=== PATIENT | male | born 1945 | race Caucasian/White ===

== ENCOUNTER 2019-03-22 14:51 | Emergency (ER) | payer MEDICAID, MEDICARE, OTHER ==
[~2019-03-22] VITALS: Ht 165.1 cm; Wt 63.5 kg
[~2019-03-22 14:51] MED LIST: ATOR10TA PO; CARB-94 PO; CLON0.1T PO; DIVA-78 PO; GABA-532 PO; GLIP10TA21 PO; LOSA50TA39 PO; METF-440 PO; METO25TA6 PO; MIRT15TA7 PO; TAMS0.4C34 PO; TEMA15CA PO; TRIH2TAB3 PO
[2019-03-22 14:53] VITALS: BP 136/79
--- NOTE | 2019-03-22 15:24 | NUR ---
Medically Cleared/MSE for Booking To [employer] custody escorted by Officer Chema
== END 2019-03-22 15:26 ==
LOC: ER 14:58
DX: Z02.89 Encounter for other administrative examinations (principal); F03.90 Unspecified dementia, unspecified severity, without behavioral disturbance, psychotic disturbance, mood disturbance, and anxiety; F20.9 Schizophrenia, unspecified; E11.9 Type 2 diabetes mellitus without complications; Z79.899 Other long term (current) drug therapy; Z79.84 Long term (current) use of oral hypoglycemic drugs

== ENCOUNTER 2023-08-18 12:36 | Emergency (ER) | payer MEDICARE, MEDICAID ==
[~2023-08-18] VITALS: Ht 157.5 cm; Wt 63.5 kg
[~2023-08-18 12:36] MED LIST changes: +MIRT-90 PO; -MIRT15TA7 PO
[2023-08-18 12:42] VITALS: BP 114/72; TEMP 98.7; O2SAT 100
[2023-08-18] MEDS ORDERED: SULF1TAB48 PO (12:51)
== END 2023-08-18 13:30 ==
LOC: ER 12:36
DX: A49.02 Methicillin resistant Staphylococcus aureus infection, unspecified site (principal); L73.9 Follicular disorder, unspecified; E11.9 Type 2 diabetes mellitus without complications; Z79.899 Other long term (current) drug therapy
CPT/HCPCS: 82962-TC

== ENCOUNTER 2023-09-30 11:44 | Inpatient (IN) | payer MEDICARE, OTHER ==
[~2023-09-30] VITALS: Ht 165.1 cm; Wt 57.6 kg
[~2023-09-30 11:44] MED LIST changes: +SULF1TAB48 PO
[2023-09-30] MEDS: IV NS 0.9% 1,000 ML BAG IV ONE (11:50)
[2023-09-30 11:59] LABS: BASOPHILS % (AUTO) 0.3 % (0.0-2.0); EOSINOPHILS % (AUTO) 0.1 % (0.0-6.0); HEMATOCRIT 39 % (39-51); HEMOGLOBIN 13.2 g/dL (13.5-17.5); LYMPHOCYTES # (AUTO) 0.6 K/uL (0.8-4.8); LYMPHOCYTES % (AUTO) 13.9 % (20.0-44.0); MEAN CORPUSCULAR HEMOGLOBIN 30 PG (26.0-33.0); MEAN CORPUSCULAR HGB CONC 34 g/dl (31.0-36.0); MEAN CORPUSCULAR VOLUME 89 fL (80-96); MONOCYTES # (AUTO) 0.5 K/uL (0.1-1.30); MONOCYTES % (AUTO) 12.1 % (2.0-12.0); NEUTROPHILS # (AUTO) 3.3 K/uL (1.8-8.9); NEUTROPHILS % (AUTO) 73.6 % (43.0-81.0); PLATELET COUNT (AUTO) 154 K/uL (150-450); RED BLOOD CELL COUNT(AUTO) 4.43 MIL/uL (4.5-6.0); RED CELL DISTRIBUTION WIDTH 14.4 % (11.5-15.0); WHITE BLOOD COUNT (AUTO) 4.5 K/uL (4.3-11.0)
[2023-09-30 12:05] LABS: CALCIUM, SERUM 9.5 mg/dL (8.5-10.1); CARBON DIOXIDE 26 mmol/L (21-32); CHLORIDE 97 mmol/L (98-107); CREATININE 1.3 mg/dL (0.6-1.3); GLUCOSE 136 mg/dL (74-106); POTASSIUM 4.2 mmol/L (3.5-5.1); SODIUM SERUM 130 mmol/L (136-145); UREA NITROGEN, BLOOD 19 mg/dL (7-18)
[2023-09-30 12:11] LABS: ALANINE AMINOTRANSFERASE 10 U/L (12-78); ALBUMIN 3.8 g/dL (3.4-5.0); ALKALINE PHOSPHATASE 79 U/L (46-116); ASPARTATE AMINOTRANSFERASE 19 U/L (15-37); BILIRUBIN,DIRECT 0.3 mg/dL (0.0-0.2); TOTAL PROTEIN, SERUM 8.4 g/dL (6.4-8.2)
[2023-09-30 12:17] LABS: INR 1.01 (0.91-1.10); PARTIAL THROMBOPLASTIN TIME 28.2 SEC (24.3-34.3); PROTHROMBIN TIME 10.4 SECS (9.2-11.1)
[2023-09-30] MEDS ORDERED: CLIN75SO TP (12:50)
[2023-09-30] MEDS ORDERED: MEMA10TA56 PO (12:50)
[2023-09-30] MEDS ORDERED: DONE10TA44 PO (12:50)
[2023-09-30] MEDS ORDERED: CLOB15CR5 TP (12:50)
[2023-09-30] MEDS ORDERED: ESCI5TAB PO (12:50)
[2023-09-30] MEDS ORDERED: GLUC1KIT2 IM (12:50)
[2023-09-30] MEDS ORDERED: CARB1TAB21 PO (12:50)
[2023-09-30] MEDS ORDERED: BUSP5TAB3 PO (12:50)
[2023-09-30] MEDS ORDERED: ZOLPIDEM TARTRATE 5 MG TABLET PO PRN (13:30)
[2023-09-30] MEDS ORDERED: MAG HYDROX/AL HYDROX/SIMETH 30 ML UDC PO PRN (13:30)
[2023-09-30] MEDS ORDERED: ONDANSETRON HCL/PF 4 MG/2 ML VIAL IVP PRN (13:30)
[2023-09-30] MEDS ORDERED: HYDROCODONE/APAP 5/325MG TABLET PO PRN (13:30)
[2023-09-30] MEDS ORDERED: Z GUARD REMEDY 4 OZ OINT TP PRN (13:30)
[2023-09-30] MEDS ORDERED: DEXTROSE 50%-WATER 50 ML DISP.SYRIN IV PRN (14:00)
[2023-09-30] MEDS: PANTOPRAZOLE 40 MG TABLET.DR PO SCH (14:05)
[2023-09-30] MEDS: IV 1/2NS 1000 ML 1,000 ML IV PRN (15:11)
[2023-09-30] MEDS: BLOOD SUGAR DIAGNOSTIC 1 EACH STRIP IN SCH (17:10)
[2023-09-30] MEDS: INSULIN REGULAR, HUMAN 100 UNIT/ML 3 ML VIAL SQ PRN (17:11)
[2023-09-30] MEDS: ACETAMINOPHEN 325 MG TABLET PO PRN (17:59)
[2023-09-30 20:49] VITALS: BP 110/75; TEMP 98.8; O2SAT 96
[2023-10-01 02:29] LABS: APPEARANCE,URINE CLEAR (CLEAR); BILIRUBIN,URINE NEGATIVE (NEGATIVE); BLOOD, URINE TRACE-INTA Ery/uL (NEGATIVE); COLOR,URINE YELLOW (YELLOW); KETONES,URINE NEGATIVE (NEGATIVE); LEUKOCYTE ESTERASE ,URINE 3+ (NEGATIVE); NITRITE, URINE POSITIVE (NEGATIVE); PROTEIN,URINE NEGATIVE (NEGATIVE); UGLUCOSE NEGATIVE (NEGATIVE); UROBILINOGEN,URINE 0.2 EU/dL (0.2)
[2023-10-01 02:30] LABS: ADD URINE CULTURE YES; BACTERIA,URINE Moderate /HPF (None Seen); SQUAMOUS EPITHELIAL CELL,UR Rare /HPF (None Seen)
[2023-10-01 07:22] LABS: BASOPHILS % (AUTO) 0.2 % (0.0-2.0); EOSINOPHILS % (AUTO) 0.2 % (0.0-6.0); HEMATOCRIT 34 % (39-51); HEMOGLOBIN 11.8 g/dL (13.5-17.5); LYMPHOCYTES # (AUTO) 1.4 K/uL (0.8-4.8); MEAN CORPUSCULAR HEMOGLOBIN 31 PG (26.0-33.0); MEAN CORPUSCULAR HGB CONC 35 g/dl (31.0-36.0); MEAN CORPUSCULAR VOLUME 88 fL (80-96); MONOCYTES # (AUTO) 0.7 K/uL (0.1-1.30); MONOCYTES % (AUTO) 15.6 % (2.0-12.0); NEUTROPHILS # (AUTO) 2.3 K/uL (1.8-8.9); PLATELET COUNT (AUTO) 166 K/uL (150-450); RED BLOOD CELL COUNT(AUTO) 3.85 MIL/uL (4.5-6.0); RED CELL DISTRIBUTION WIDTH 14.3 % (11.5-15.0); WHITE BLOOD COUNT (AUTO) 4.4 K/uL (4.3-11.0)
[2023-10-01 07:30] VITALS: BP 112/62; TEMP 97.4; O2SAT 97
[2023-10-01 07:44] VITALS: O2SAT 97
[2023-10-01 07:53] LABS: CALCIUM, SERUM 8.1 mg/dL (8.5-10.1); CARBON DIOXIDE 23 mmol/L (21-32); CHLORIDE 101 mmol/L (98-107); CREATININE 0.7 mg/dL (0.6-1.3); GLUCOSE 89 mg/dL (74-106); MAGNESIUM 1.7 mg/dL (1.8-2.4); PHOSPHORUS 2.7 mg/dL (2.5-4.9); POTASSIUM 3.8 mmol/L (3.5-5.1); SODIUM SERUM 136 mmol/L (136-145); UREA NITROGEN, BLOOD 14 mg/dL (7-18)
[2023-10-01] MEDS ORDERED: GLUCAGON XX SCH (08:30)
[2023-10-01 08:39] LABS: CHOLESTEROL 73 mg/dL (<200); HDL CHOLESTEROL 34 mg/dL (40-60); LDL 34 mg/dL (0-99); TRIGLYCERIDES 59 mg/dL (30-150)
[2023-10-01] MEDS: CEFTRIAXONE 1 G in IV D5W 50 ML IV SCH (09:23)
[2023-10-01] MEDS: MEMANTINE HCL 5 MG TABLET PO SCH (09:30)
[2023-10-01] MEDS: TAMSULOSIN 0.4 MG CAP.SR.24H PO SCH (09:31)
[2023-10-01] MEDS: busPIRone 5 MG TABLET PO SCH (09:32)
[2023-10-01] MEDS: ESCITALOPRAM OXALATE (10 MG) 10 MG TABLET PO SCH (09:32)
[2023-10-01] MEDS: GABAPENTIN 100 MG CAPSULE PO SCH (09:32)
[2023-10-01] MEDS: CARBIDOPA/LEVODOPA 25/100 MG 1 UDTAB PO SCH (09:34)
[2023-10-01 09:50] LABS: BAND % (MANUAL) 1 % (0.0-5.0); NEUTROPHILS % (MANUAL) 42 (42-76)
[2023-10-01 09:51] LABS: LYMPHOCYTES % (MANUAL) 40 % (16-48); MONOCYTES % (MANUAL) 15 % (0-11.0); MYELOCYTES % 1 % (0-0)
[2023-10-01 09:52] LABS: EOSINOPHILS % (MANUAL) 1 % (0-4); PLATELET ESTIMATE ADEQUATE
[2023-10-01] MEDS: MAGNESIUM OXIDE 400 MG TABLET PO ONE (10:51)
[2023-10-01] MEDS: CLOBETASOL 0.05% CREAM 15 GM TUBE TP SCH (13:46)
[2023-10-01 16:00] VITALS: BP 101/65; TEMP 97.5; O2SAT 98
[2023-10-01 20:00] VITALS: BP 99/67; TEMP 97.9; O2SAT 100
[2023-10-01 20:50] VITALS: BP 99/67; TEMP 97.9; O2SAT 100
[2023-10-01] MEDS: DONEPEZIL 5 MG TABLET PO SCH (21:31)
[2023-10-01] MEDS: ATORVASTATIN 10 MG TABLET PO SCH (21:31)
[2023-10-02 07:10] LABS: CALCIUM, SERUM 8.3 mg/dL (8.5-10.1); CARBON DIOXIDE 24 mmol/L (21-32); CHLORIDE 99 mmol/L (98-107); CREATININE 0.7 mg/dL (0.6-1.3); GLUCOSE 85 mg/dL (74-106); MAGNESIUM 1.9 mg/dL (1.8-2.4); PHOSPHORUS 2.5 mg/dL (2.5-4.9); POTASSIUM 3.5 mmol/L (3.5-5.1); SODIUM SERUM 131 mmol/L (136-145); UREA NITROGEN, BLOOD 8 mg/dL (7-18)
[2023-10-02 07:30] VITALS: BP 116/62; TEMP 98.4; O2SAT 95
[2023-10-02 07:35] VITALS: BP 115/64; TEMP 98.8; O2SAT 96
[2023-10-02 08:00] VITALS: O2SAT 95
[2023-10-02 08:38] LABS: URIC ACID 3.8 mg/dL (2.6-7.2)
[2023-10-02 15:52] VITALS: BP 99/58; TEMP 98.2; O2SAT 93
[2023-10-02] MEDS: IV NS 0.9% 1,000 ML IV PRN (15:52)
[2023-10-02] MEDS: MAGNESIUM HYDROXIDE 30 ML UDC PO PRN (16:51)
[2023-10-03 08:00] VITALS: BP 127/66; TEMP 98.4; O2SAT 96
== END 2023-10-03 13:15 | DRG 640 ==
LOC: ER 11:50 → MED 12:58
PROVIDERS: ADMIT Nurse Practitioner Acute Care; ATTEND Nurse Practitioner Acute Care
DX: E87.1 Hypo-osmolality and hyponatremia (principal); G93.41 Metabolic encephalopathy; N39.0 Urinary tract infection, site not specified; E11.9 Type 2 diabetes mellitus without complications; G30.9 Alzheimer's disease, unspecified; F02.80 Dementia in other diseases classified elsewhere, unspecified severity, without behavioral disturbance, psychotic disturbance, mood disturbance, and anxiety; I25.10 Atherosclerotic heart disease of native coronary artery without angina pectoris; F20.9 Schizophrenia, unspecified; N40.0 Benign prostatic hyperplasia without lower urinary tract symptoms; F29 Unspecified psychosis not due to a substance or known physiological condition; Z79.84 Long term (current) use of oral hypoglycemic drugs; Z79.899 Other long term (current) drug therapy; E78.5 Hyperlipidemia, unspecified; I10 Essential (primary) hypertension; B96.89 Other specified bacterial agents as the cause of diseases classified elsewhere; R53.1 Weakness; Z82.49 Family history of ischemic heart disease and other diseases of the circulatory system; Z83.3 Family history of diabetes mellitus
CPT/HCPCS: 36415; 70450-TC; 71045-TC; 80048-TC; 80061-TC; 80076-TC; 81001; 82962-TC; 83605-TC; 83735-TC; 83935-TC; 84100-TC; 84443-TC; 84484-TC; 84550-TC; 85025-TC; 85730-TC; 87040-TC; 87081-TC; 87086-TC; 94762-TC; 94799-TC; 97110-TC; 97116-TC; 97530-TC; A4223; G0378; J0696; J1815; J3490; J7030; J7060

== ENCOUNTER 2023-12-25 13:12 | Inpatient (IN) | payer MEDICARE, OTHER ==
[~2023-12-25] VITALS: Ht 154.9 cm; Wt 49.9 kg
[~2023-12-25 13:12] MED LIST changes: +BUSP5TAB3 PO; -CARB-94 PO; +CARB1TAB21 PO; +CLIN75SO TP; +CLOB15CR5 TP; -CLON0.1T PO; -DIVA-78 PO; +DONE10TA44 PO; +ESCI5TAB PO; -GLIP10TA21 PO; +GLUC1KIT2 IM; -LOSA50TA39 PO; +MEMA10TA56 PO; -METO25TA6 PO; -MIRT-90 PO; -SULF1TAB48 PO; -TEMA15CA PO; -TRIH2TAB3 PO
[2023-12-25] MEDS ORDERED: DOCU100C36 PO (13:47)
[2023-12-25] MEDS ORDERED: PANT40TA49 PO (13:47)
[2023-12-25] MEDS ORDERED: ACET325T53 PO (13:47)
[2023-12-25] MEDS ORDERED: ONDANSETRON HCL/PF 4 MG/2 ML VIAL ONE (13:51)
[2023-12-25] MEDS: ONDANSETRON HCL/PF 4 MG/2 ML VIAL IVP ONE (13:56)
[2023-12-25 14:01] LABS: BASOPHILS % (AUTO) 0.2 % (0.0-2.0); EOSINOPHILS % (AUTO) 0.1 % (0.0-6.0); HEMATOCRIT 41 % (39-51); HEMOGLOBIN 13.6 g/dL (13.5-17.5); LYMPHOCYTES # (AUTO) 1.1 K/uL (0.8-4.8); MEAN CORPUSCULAR HEMOGLOBIN 30 PG (26.0-33.0); MEAN CORPUSCULAR HGB CONC 34 g/dl (31.0-36.0); MEAN CORPUSCULAR VOLUME 89 fL (80-96); MONOCYTES # (AUTO) 0.4 K/uL (0.1-1.30); MONOCYTES % (AUTO) 9.1 % (2.0-12.0); NEUTROPHILS % (AUTO) 65.6 % (43.0-81.0); PLATELET COUNT (AUTO) 146 K/uL (150-450); RED BLOOD CELL COUNT(AUTO) 4.57 MIL/uL (4.5-6.0); RED CELL DISTRIBUTION WIDTH 14.9 % (11.5-15.0); WHITE BLOOD COUNT (AUTO) 4.5 K/uL (4.3-11.0)
[2023-12-25 14:19] LABS: ALANINE AMINOTRANSFERASE 20 U/L (12-78); ALBUMIN 4.2 g/dL (3.4-5.0); ALKALINE PHOSPHATASE 82 U/L (46-116); ASPARTATE AMINOTRANSFERASE 17 U/L (15-37); BILIRUBIN,DIRECT 0.2 mg/dL (0.0-0.2); CALCIUM, SERUM 9.2 mg/dL (8.5-10.1); CARBON DIOXIDE 29 mmol/L (21-32); CHLORIDE 103 mmol/L (98-107); CREATININE 0.9 mg/dL (0.6-1.3); GLUCOSE 105 mg/dL (74-106); LIPASE 47 U/L (16-77); POTASSIUM 4.3 mmol/L (3.5-5.1); SODIUM SERUM 138 mmol/L (136-145); TOTAL PROTEIN, SERUM 8.7 g/dL (6.4-8.2); UREA NITROGEN, BLOOD 24 mg/dL (7-18)
[2023-12-25] MEDS ORDERED: hydrALAZINE HCL IV 20 MG VIAL IV PRN (14:30)
[2023-12-25] MEDS ORDERED: ONDANSETRON HCL/PF 4 MG/2 ML VIAL IVP PRN (14:30)
[2023-12-25] MEDS ORDERED: MORPHINE SULFATE INJ 2 MG/ML DISP.SYRIN IV PRN (14:30)
[2023-12-25] MEDS ORDERED: DEXTROSE 50%-WATER 50 ML DISP.SYRIN IV PRN (14:30)
[2023-12-25] MEDS ORDERED: ACETAMINOPHEN 325 MG TABLET PO PRN (14:30)
[2023-12-25 14:35] LABS: BILIRUBIN,TOTAL 0.7 mg/dL (0.2-1.0)
[2023-12-25] MEDS: IV NS 0.9% 1,000 ML IV PRN (15:36)
[2023-12-25 16:07] VITALS: BP 113/63; TEMP 98.2; O2SAT 96
[2023-12-25] MEDS: CARBIDOPA/LEVODOPA 25/100 MG 1 UDTAB PO SCH (17:00)
[2023-12-25] MEDS: GABAPENTIN 100 MG CAPSULE PO SCH (17:00)
[2023-12-25] MEDS: PANTOPRAZOLE 40 MG VIAL IV SCH (17:18)
[2023-12-25] MEDS: INSULIN REGULAR, HUMAN 100 UNIT/ML 3 ML VIAL SQ PRN (17:24)
[2023-12-25] MEDS: BLOOD SUGAR DIAGNOSTIC 1 EACH STRIP VI SCH (17:24)
[2023-12-25 19:05] LABS: APPEARANCE,URINE SLIGHTLY CLOUDY (CLEAR); BILIRUBIN,URINE NEGATIVE (NEGATIVE); BLOOD, URINE NEGATIVE Ery/uL (NEGATIVE); COLOR,URINE YELLOW (YELLOW); KETONES,URINE NEGATIVE (NEGATIVE); LEUKOCYTE ESTERASE ,URINE 2+ (NEGATIVE); NITRITE, URINE NEGATIVE (NEGATIVE); PH,URINE 6.5 (5.0-8.0); PROTEIN,URINE NEGATIVE (NEGATIVE); UGLUCOSE NEGATIVE (NEGATIVE)
[2023-12-25 19:36] LABS: ADD URINE CULTURE YES; BACTERIA,URINE 4+ /HPF (None Seen); RBC,URINE 0-2 /HPF (0-2)
[2023-12-25 21:00] VITALS: BP_SYST 102; TEMP 98.4; O2SAT 95
[2023-12-25] MEDS: *INSULIN REGULAR(HUMULIN R)HUM 100 UNIT/ML VIAL SQ PRN (22:09)
[2023-12-25] MEDS: DONEPEZIL 5 MG TABLET PO SCH (22:16)
[2023-12-25] MEDS: ATORVASTATIN 10 MG TABLET PO SCH (22:16)
[2023-12-25] MEDS: CEFEPIME 2 GM in IV D5W 100 ML IV SCH (22:47)
[2023-12-26 06:34] LABS: BASOPHILS % (AUTO) 0.6 % (0.0-2.0); EOSINOPHILS % (AUTO) 0.3 % (0.0-6.0); HEMATOCRIT 36 % (39-51); HEMOGLOBIN 12.5 g/dL (13.5-17.5); LYMPHOCYTES # (AUTO) 1.5 K/uL (0.8-4.8); LYMPHOCYTES % (AUTO) 44.6 % (20.0-44.0); MEAN CORPUSCULAR HEMOGLOBIN 31 PG (26.0-33.0); MEAN CORPUSCULAR HGB CONC 35 g/dl (31.0-36.0); MEAN CORPUSCULAR VOLUME 89 fL (80-96); MONOCYTES # (AUTO) 0.6 K/uL (0.1-1.30); MONOCYTES % (AUTO) 19.1 % (2.0-12.0); NEUTROPHILS # (AUTO) 1.2 K/uL (1.8-8.9); NEUTROPHILS % (AUTO) 35.4 % (43.0-81.0); PLATELET COUNT (AUTO) 147 K/uL (150-450); RED BLOOD CELL COUNT(AUTO) 4.01 MIL/uL (4.5-6.0); RED CELL DISTRIBUTION WIDTH 14.7 % (11.5-15.0); WHITE BLOOD COUNT (AUTO) 3.3 K/uL (4.3-11.0)
[2023-12-26 06:40] LABS: ALANINE AMINOTRANSFERASE 19 U/L (12-78); ALBUMIN 3.8 g/dL (3.4-5.0); ALKALINE PHOSPHATASE 65 U/L (46-116); ASPARTATE AMINOTRANSFERASE 17 U/L (15-37); CALCIUM, SERUM 8.7 mg/dL (8.5-10.1); CARBON DIOXIDE 29 mmol/L (21-32); CHLORIDE 102 mmol/L (98-107); CREATININE 0.7 mg/dL (0.6-1.3); GLUCOSE 87 mg/dL (74-106); MAGNESIUM 1.8 mg/dL (1.8-2.4); PHOSPHORUS 3.3 mg/dL (2.5-4.9); POTASSIUM 3.8 mmol/L (3.5-5.1); SODIUM SERUM 139 mmol/L (136-145); TOTAL PROTEIN, SERUM 7.9 g/dL (6.4-8.2); UREA NITROGEN, BLOOD 22 mg/dL (7-18)
[2023-12-26 07:00] VITALS: BP 120/73; TEMP 97.5; O2SAT 92
[2023-12-26] MEDS: DOCUSATE SODIUM 100 MG CAPSULE PO SCH (09:00)
[2023-12-26] MEDS: TAMSULOSIN 0.4 MG CAP.SR.24H PO SCH (09:51)
[2023-12-26] MEDS: MEMANTINE HCL 5 MG TABLET PO SCH (09:52)
[2023-12-26] MEDS: ESCITALOPRAM OXALATE (10 MG) 10 MG TABLET PO SCH (09:52)
[2023-12-26 16:00] VITALS: BP 94/63; TEMP 97.5; O2SAT 92
[2023-12-26 21:02] VITALS: BP 95/65; TEMP 98.2; O2SAT 95
[2023-12-27 08:00] VITALS: BP 107/70; TEMP 97.9; O2SAT 96
[2023-12-27] MEDS: PANTOPRAZOLE 40 MG TABLET.DR PO SCH (08:51)
[2023-12-27] MEDS: CEFEPIME 1 GM in IV D5W 50 ML IV SCH (10:19)
[2023-12-27 16:02] VITALS: BP 107/72; TEMP 97.5; O2SAT 95
[2023-12-27 20:00] VITALS: BP 112/65; TEMP 98.1; O2SAT 95
[2023-12-27 20:01] VITALS: BP 112/65; TEMP 98.1; O2SAT 94
[2023-12-28 10:37] VITALS: BP 130/77; TEMP 98.2; O2SAT 96
== END 2023-12-28 15:00 | DRG 394 ==
LOC: ER 13:17 → MED 14:43
PROVIDERS: ADMIT Internal Medicine; ATTEND Internal Medicine
DX: K40.30 Unilateral inguinal hernia, with obstruction, without gangrene, not specified as recurrent (principal); N39.0 Urinary tract infection, site not specified; E11.9 Type 2 diabetes mellitus without complications; E78.5 Hyperlipidemia, unspecified; I10 Essential (primary) hypertension; F20.9 Schizophrenia, unspecified; I25.10 Atherosclerotic heart disease of native coronary artery without angina pectoris; Z79.84 Long term (current) use of oral hypoglycemic drugs; F32.A Depression, unspecified; N40.0 Benign prostatic hyperplasia without lower urinary tract symptoms; K57.30 Diverticulosis of large intestine without perforation or abscess without bleeding; K56.41 Fecal impaction; R11.2 Nausea with vomiting, unspecified; F02.80 Dementia in other diseases classified elsewhere, unspecified severity, without behavioral disturbance, psychotic disturbance, mood disturbance, and anxiety; G20.A1 Parkinson's disease without dyskinesia, without mention of fluctuations; Z83.3 Family history of diabetes mellitus; Z82.49 Family history of ischemic heart disease and other diseases of the circulatory system; B96.20 Unspecified Escherichia coli [E. coli] as the cause of diseases classified elsewhere
CPT/HCPCS: 36415; 80048-TC; 80053-TC; 80076-TC; 81001; 82962-TC; 83690-TC; 83735-TC; 84100-TC; 85025-TC; 87086-TC; 97110-TC; 97116-TC; 97530-TC; A4223; G0378; J0692; J1815; J2405; J2470; J7030; J7060

== ENCOUNTER 2024-02-04 16:28 | Inpatient (IN) | payer MEDICARE, OTHER ==
[~2024-02-04] VITALS: Ht 157.5 cm; Wt 54.4 kg
[~2024-02-04 16:28] MED LIST changes: +ACET325T53 PO; -BUSP5TAB3 PO; -CLIN75SO TP; +DOCU100C36 PO; +PANT40TA49 PO; +POVI1MED TP; +TRIA15CR2 TP
[2024-02-04] MEDS ORDERED: MAG HYDROX/AL HYDROX/SIMETH 30 ML UDC PO PRN (21:30)
[2024-02-04] MEDS: BLOOD SUGAR DIAGNOSTIC 1 EACH STRIP IN ONE (22:15)
[2024-02-04 22:45] VITALS: BP 138/80; TEMP 98.1; O2SAT 98
[2024-02-05] MEDS ORDERED: OXCA300O PO (07:02)
[2024-02-05] MEDS ORDERED: QUET25TA PO (07:02)
[2024-02-05] MEDS ORDERED: TRAZ-182 PO (07:02)
[2024-02-05] MEDS ORDERED: QUET100T PO (07:02)
[2024-02-05] MEDS ORDERED: DEXTROSE 50%-WATER 50 ML DISP.SYRIN IV PRN (07:30)
[2024-02-05] MEDS: BLOOD SUGAR DIAGNOSTIC 1 EACH STRIP IN SCH (07:32)
[2024-02-05 07:56] LABS: CHOLESTEROL 105 mg/dL (<200); HDL CHOLESTEROL 50 mg/dL (40-60); LDL 47 mg/dL (0-99); TRIGLYCERIDES 51 mg/dL (30-150)
[2024-02-05 08:03] VITALS: BP 152/94; TEMP 96.4; O2SAT 96
[2024-02-05 08:12] LABS: ALANINE AMINOTRANSFERASE 20 U/L (12-78); ALBUMIN 3.9 g/dL (3.4-5.0); ALKALINE PHOSPHATASE 85 U/L (46-116); ASPARTATE AMINOTRANSFERASE 20 U/L (15-37); BILIRUBIN,TOTAL 0.8 mg/dL (0.2-1.0); CALCIUM, SERUM 8.3 mg/dL (8.5-10.1); CARBON DIOXIDE 23 mmol/L (21-32); CHLORIDE 96 mmol/L (98-107); CREATININE 0.7 mg/dL (0.6-1.3); GLUCOSE 96 mg/dL (74-106); POTASSIUM 3.9 mmol/L (3.5-5.1); SODIUM SERUM 131 mmol/L (136-145); UREA NITROGEN, BLOOD 11 mg/dL (7-18)
[2024-02-05] MEDS ORDERED: NA P133E RC (09:37)
[2024-02-05] MEDS ORDERED: CRAN425C6 PO (09:37)
[2024-02-05] MEDS ORDERED: MELA3TAB41 PO (09:37)
[2024-02-05] MEDS ORDERED: OXCA300T15 PO (09:37)
[2024-02-05] MEDS ORDERED: MAGN400O6 PO (09:37)
[2024-02-05] MEDS: TAMSULOSIN 0.4 MG CAP.SR.24H PO SCH (09:41)
[2024-02-05] MEDS: CARBIDOPA/LEVODOPA 25/100 MG 1 UDTAB PO SCH (09:42)
[2024-02-05] MEDS: DOCUSATE SODIUM 100 MG CAPSULE PO SCH (09:42)
[2024-02-05] MEDS: PANTOPRAZOLE 40 MG TABLET.DR PO SCH (09:42)
[2024-02-05] MEDS ORDERED: GABAPENTIN 100 MG CAPSULE PO SCH (13:00)
[2024-02-05] MEDS: ACETAMINOPHEN 325 MG TABLET PO PRN (14:00)
[2024-02-05 14:21] LABS: BASOPHILS % (AUTO) 0.8 % (0.0-2.0); EOSINOPHILS % (AUTO) 0.1 % (0.0-6.0); HEMATOCRIT 36 % (39-51); HEMOGLOBIN 12.4 g/dL (13.5-17.5); LYMPHOCYTES # (AUTO) 0.8 K/uL (0.8-4.8); LYMPHOCYTES % (AUTO) 23.9 % (20.0-44.0); MEAN CORPUSCULAR HEMOGLOBIN 30 PG (26.0-33.0); MEAN CORPUSCULAR HGB CONC 34 g/dl (31.0-36.0); MEAN CORPUSCULAR VOLUME 88 fL (80-96); MONOCYTES # (AUTO) 0.4 K/uL (0.1-1.30); MONOCYTES % (AUTO) 10.8 % (2.0-12.0); NEUTROPHILS # (AUTO) 2.2 K/uL (1.8-8.9); NEUTROPHILS % (AUTO) 64.4 % (43.0-81.0); PLATELET COUNT (AUTO) 165 K/uL (150-450); RED BLOOD CELL COUNT(AUTO) 4.12 MIL/uL (4.5-6.0); RED CELL DISTRIBUTION WIDTH 15.5 % (11.5-15.0); WHITE BLOOD COUNT (AUTO) 3.5 K/uL (4.3-11.0)
[2024-02-05] MEDS: HALOPERIDOL 1 MG TABLET PO SCH (15:25)
[2024-02-05] MEDS: GABAPENTIN 100 MG CAPSULE PO SCH (15:26)
[2024-02-05 16:09] VITALS: BP 139/72; TEMP 98.6; O2SAT 98
[2024-02-05] MEDS: ARGININE/GLUTAMINE/CALCIUM BMB 1 EACH POWD.PACK PO SCH (17:00)
[2024-02-05] MEDS: GLUCERNA SHAKE 237 ML CAN PO SCH (17:54)
[2024-02-05 20:00] VITALS: BP 128/78; TEMP 98.4; O2SAT 100
[2024-02-05] MEDS: ATORVASTATIN 10 MG TABLET PO SCH (21:08)
[2024-02-05] MEDS: ZOLPIDEM TARTRATE 5 MG TABLET PO PRN (22:25)
[2024-02-06 08:00] VITALS: BP 134/76; TEMP 98.5; O2SAT 98
[2024-02-06 08:28] LABS: CALCIUM, SERUM 8.7 mg/dL (8.5-10.1); CARBON DIOXIDE 26 mmol/L (21-32); CHLORIDE 95 mmol/L (98-107); CREATININE 0.8 mg/dL (0.6-1.3); GLUCOSE 110 mg/dL (74-106); POTASSIUM 3.8 mmol/L (3.5-5.1); SODIUM SERUM 129 mmol/L (136-145); UREA NITROGEN, BLOOD 12 mg/dL (7-18)
[2024-02-06] MEDS: ASCORBIC ACID 500 MG TABLET PO SCH (08:43)
[2024-02-06] MEDS: ZINC SULFATE 220 MG CAPSULE PO SCH (08:43)
[2024-02-06 16:00] VITALS: BP 121/82; TEMP 98; O2SAT 94
[2024-02-06 20:00] VITALS: BP 124/73; TEMP 98.1; O2SAT 98
[2024-02-07 08:00] VITALS: BP 127/60; TEMP 97.3; O2SAT 95
[2024-02-07 08:20] LABS: CALCIUM, SERUM 8.9 mg/dL (8.5-10.1); CARBON DIOXIDE 29 mmol/L (21-32); CHLORIDE 99 mmol/L (98-107); CREATININE 0.8 mg/dL (0.6-1.3); GLUCOSE 118 mg/dL (74-106); PHOSPHORUS 2.4 mg/dL (2.5-4.9); POTASSIUM 4.2 mmol/L (3.5-5.1); SODIUM SERUM 134 mmol/L (136-145); UREA NITROGEN, BLOOD 14 mg/dL (7-18); URIC ACID 4.2 mg/dL (2.6-7.2)
[2024-02-07 16:00] VITALS: BP 112/81; TEMP 98.6; O2SAT 99
[2024-02-07] MEDS: HALOPERIDOL 1 MG TABLET PO SCH (16:31)
[2024-02-07 20:00] VITALS: BP 98/73; TEMP 98.4; O2SAT 97
[2024-02-08 07:39] LABS: CALCIUM, SERUM 8.8 mg/dL (8.5-10.1); CARBON DIOXIDE 25 mmol/L (21-32); CHLORIDE 101 mmol/L (98-107); CREATININE 0.8 mg/dL (0.6-1.3); GLUCOSE 112 mg/dL (74-106); POTASSIUM 3.6 mmol/L (3.5-5.1); SODIUM SERUM 136 mmol/L (136-145); UREA NITROGEN, BLOOD 20 mg/dL (7-18)
[2024-02-08 08:00] VITALS: BP 117/72; TEMP 98; O2SAT 98
[2024-02-08] MEDS: DIVALPROEX SODIUM 125 MG TABLET.DR PO SCH (15:07)
[2024-02-08 16:00] VITALS: BP 128/61; TEMP 97.6; O2SAT 98
[2024-02-08 21:10] VITALS: BP 116/67; TEMP 97.6; O2SAT 96
[2024-02-09 08:00] VITALS: BP 105/62; TEMP 97.8; O2SAT 94
[2024-02-09 16:00] VITALS: BP 131/59; TEMP 97.9; O2SAT 96
[2024-02-09 21:28] VITALS: BP 115/98; TEMP 97.8; O2SAT 96
[2024-02-10 08:00] VITALS: BP 118/82; TEMP 97.9; O2SAT 95
[2024-02-10] MEDS: BLOOD SUGAR DIAGNOSTIC 1 EACH STRIP IN SCH (08:06)
[2024-02-10] MEDS ORDERED: BLOOD SUGAR DIAGNOSTIC 1 EACH STRIP IN SCH (09:00)
[2024-02-10] MEDS: DIVALPROEX SODIUM 125 MG TABLET.DR PO SCH (15:35)
[2024-02-10 16:00] VITALS: BP 121/55; TEMP 98; O2SAT 94
[2024-02-10] MEDS: MAGNESIUM HYDROXIDE 30 ML UDC PO PRN (16:57)
[2024-02-10 21:16] VITALS: BP 105/69; TEMP 98.1; O2SAT 97
[2024-02-11 08:00] VITALS: BP 126/61; TEMP 98.7; O2SAT 98
[2024-02-11] MEDS: HALOPERIDOL 1 MG TABLET PO SCH ×2 (14:42→21:28)
[2024-02-11] MEDS: BENZTROPINE MESYLATE (1 MG) 1 MG TABLET PO SCH (15:12)
[2024-02-11 16:00] VITALS: BP 106/71; TEMP 98.7; O2SAT 98
[2024-02-11 20:44] VITALS: BP 114/73; TEMP 98.4; O2SAT 96
[2024-02-12 08:00] VITALS: BP 125/77; TEMP 97.7; O2SAT 100
[2024-02-12] MEDS: SCOPOLAMINE PATCH 1 MG/72HR TD SCH (12:49)
[2024-02-12 16:00] VITALS: BP 111/74; TEMP 97.8; O2SAT 96
[2024-02-12 20:00] VITALS: BP 125/78; TEMP 97.9; O2SAT 98
[2024-02-12] MEDS: DOXYCYCLINE HYCLATE (100 MG) 100 MG TABLET PO SCH (20:57)
[2024-02-12] MEDS: HALOPERIDOL 1 MG TABLET PO SCH (20:57)
[2024-02-13 08:00] VITALS: BP 111/62; TEMP 98.4; O2SAT 98
[2024-02-13 16:00] VITALS: BP 112/78; TEMP 97.7; O2SAT 97
[2024-02-13 20:00] VITALS: BP 105/70; TEMP 98.1; O2SAT 100
[2024-02-14 08:00] VITALS: BP 117/73; TEMP 98.6; O2SAT 98
[2024-02-14 16:00] VITALS: BP 117/69; TEMP 97.7; O2SAT 100
[2024-02-14 20:00] VITALS: BP 118/63; TEMP 98.2; O2SAT 100
[2024-02-14] MEDS: DIVALPROEX SODIUM 250 MG TABLET.DR PO ONE (20:50)
[2024-02-14] MEDS: DIVALPROEX SODIUM 125 MG TABLET.DR PO ONE (21:06)
[2024-02-15 08:00] VITALS: BP 110/63; TEMP 97.9; O2SAT 99
[2024-02-15] MEDS: DIVALPROEX SODIUM 125 MG TABLET.DR PO SCH (13:02)
[2024-02-15 16:00] VITALS: BP 104/70; TEMP 97.7; O2SAT 100
[2024-02-15] MEDS: INSULIN REGULAR, HUMAN 100 UNIT/ML 3 ML VIAL SQ PRN (17:01)
[2024-02-15 20:45] VITALS: BP 101/54; TEMP 97.8; O2SAT 99
[2024-02-16 08:00] VITALS: BP 113/77; TEMP 97.7; O2SAT 100
[2024-02-16 16:00] VITALS: BP 101/56; TEMP 97.8; O2SAT 100
[2024-02-16 20:44] VITALS: BP 114/78; TEMP 97.9; O2SAT 97
[2024-02-17 08:00] VITALS: BP 116/63; TEMP 98.9; O2SAT 99
[2024-02-17 16:00] VITALS: BP 100/66; TEMP 98.6; O2SAT 97
[2024-02-17 20:45] VITALS: BP 129/83; TEMP 98.4; O2SAT 98
[2024-02-18 08:00] VITALS: BP 111/63; TEMP 97.9; O2SAT 97
[2024-02-18 16:00] VITALS: BP 126/57; TEMP 97.9; O2SAT 98
[2024-02-19 08:00] VITALS: BP 114/60; TEMP 98.7; O2SAT 100
== END 2024-02-19 11:05 | DRG 885 ==
LOC: GPS 20:47
PROVIDERS: ADMIT Psychiatry & Neurology Psychiatry
DX: F39 Unspecified mood [affective] disorder (principal); F02.811 Dementia in other diseases classified elsewhere, unspecified severity, with agitation; E87.1 Hypo-osmolality and hyponatremia; L03.116 Cellulitis of left lower limb; F02.82 Dementia in other diseases classified elsewhere, unspecified severity, with psychotic disturbance; F31.9 Bipolar disorder, unspecified; G20.A1 Parkinson's disease without dyskinesia, without mention of fluctuations; N40.0 Benign prostatic hyperplasia without lower urinary tract symptoms; K40.90 Unilateral inguinal hernia, without obstruction or gangrene, not specified as recurrent; I25.10 Atherosclerotic heart disease of native coronary artery without angina pectoris; E11.40 Type 2 diabetes mellitus with diabetic neuropathy, unspecified; E11.621 Type 2 diabetes mellitus with foot ulcer; L97.522 Non-pressure chronic ulcer of other part of left foot with fat layer exposed; I10 Essential (primary) hypertension; E78.5 Hyperlipidemia, unspecified; Z83.3 Family history of diabetes mellitus; Z82.49 Family history of ischemic heart disease and other diseases of the circulatory system; Z79.899 Other long term (current) drug therapy; Z86.19 Personal history of other infectious and parasitic diseases
CPT/HCPCS: 36415; 80048-TC; 80053-TC; 80061-TC; 80164-TC; 82962-TC; 83735-TC; 83935-TC; 84100-TC; 84300-TC; 84443-TC; 84550-TC; 85025-TC; J1815

== ENCOUNTER 2024-02-26 16:12 | Inpatient (IN) | payer MEDICARE, OTHER ==
[~2024-02-26] VITALS: Ht 167.6 cm; Wt 55.8 kg
[~2024-02-26 16:12] MED LIST changes: -CLOB15CR5 TP; +CRAN425C6 PO; -DONE10TA44 PO; -ESCI5TAB PO; +MAGN400O6 PO; +MELA3TAB41 PO; -MEMA10TA56 PO; -METF-440 PO; +NA P133E RC; +OXCA300T15 PO; +QUET100T PO; +QUET25TA PO; +TRAZ-182 PO
[2024-02-26 17:32] LABS: BASOPHILS # (AUTO) 0.2 K/uL (0.0-0.2); BASOPHILS % (AUTO) 4.4 % (0.0-2.0); EOSINOPHILS # (AUTO) 0.2 K/uL (0.0-0.7); EOSINOPHILS % (AUTO) 4.1 % (0.0-6.0); HEMATOCRIT 33 % (39-51); HEMOGLOBIN 10.9 g/dL (13.5-17.5); LYMPHOCYTES # (AUTO) 1.4 K/uL (0.8-4.8); LYMPHOCYTES % (AUTO) 25.7 % (20.0-44.0); MEAN CORPUSCULAR HEMOGLOBIN 31 PG (26.0-33.0); MEAN CORPUSCULAR HGB CONC 33 g/dl (31.0-36.0); MEAN CORPUSCULAR VOLUME 92 fL (80-96); MONOCYTES # (AUTO) 1.2 K/uL (0.1-1.30); MONOCYTES % (AUTO) 21.8 % (2.0-12.0); NEUTROPHILS # (AUTO) 2.4 K/uL (1.8-8.9); PLATELET COUNT (AUTO) 130 K/uL (150-450); RED BLOOD CELL COUNT(AUTO) 3.57 MIL/uL (4.5-6.0); RED CELL DISTRIBUTION WIDTH 17.3 % (11.5-15.0); WHITE BLOOD COUNT (AUTO) 5.4 K/uL (4.3-11.0)
[2024-02-26] MEDS: ONDANSETRON HCL/PF 4 MG/2 ML VIAL IVP ONE (17:49)
[2024-02-26 17:55] LABS: CALCIUM, SERUM 8.9 mg/dL (8.5-10.1); CREATININE 0.9 mg/dL (0.6-1.3); POTASSIUM 4.9 mmol/L (3.5-5.1)
[2024-02-26 17:58] LABS: ALBUMIN 3.3 g/dL (3.4-5.0)
[2024-02-26 18:08] LABS: ANISOCYTOSIS 1+; BASOPHILS % (MANUAL) 0 % (0.0-2.0); EOSINOPHILS % (MANUAL) 2 % (0-4); LYMPHOCYTES % (MANUAL) 29 % (16-48); MONOCYTES % (MANUAL) 20 % (0-11.0); NEUTROPHILS % (MANUAL) 49 (42-76); PLATELET ESTIMATE DECREASED
[2024-02-26 18:20] LABS: BILIRUBIN,DIRECT 0.1 mg/dL (0.0-0.2); BILIRUBIN,TOTAL 0.3 mg/dL (0.2-1.0); TOTAL PROTEIN, SERUM 7.4 g/dL (6.4-8.2)
[2024-02-26] MEDS ORDERED: OLANZAPINE 10 MG VIAL IM ONE (18:33)
[2024-02-26] MEDS: OLANZAPINE 10 MG VIAL IM ONE (18:41)
[2024-02-26] MEDS ORDERED: Z GUARD REMEDY 4 OZ OINT TP PRN (19:30)
[2024-02-26] MEDS ORDERED: ONDANSETRON HCL/PF 4 MG/2 ML VIAL IVP PRN (19:30)
[2024-02-26] MEDS ORDERED: LORAZEPAM INJ 2 MG/ML VIAL ONE (20:16)
[2024-02-26] MEDS: LORAZEPAM INJ 2 MG/ML VIAL IV ONE (20:17)
[2024-02-26 20:52] VITALS: BP 145/79; TEMP 98.2; O2SAT 97
[2024-02-26 21:56] VITALS: BP 145/79; TEMP 98.2; O2SAT 97
[2024-02-26] MEDS: IV NS 0.9% 1,000 ML IV PRN (22:45)
[2024-02-27] MEDS: PANTOPRAZOLE 40 MG VIAL IV SCH (08:30)
[2024-02-27 16:01] LABS: BASOPHILS % (AUTO) 0.1 % (0.0-2.0); EOSINOPHILS % (AUTO) 0.1 % (0.0-6.0); HEMATOCRIT 35 % (39-51); LYMPHOCYTES # (AUTO) 1.6 K/uL (0.8-4.8); LYMPHOCYTES % (AUTO) 16.7 % (20.0-44.0); MEAN CORPUSCULAR HEMOGLOBIN 31 PG (26.0-33.0); MEAN CORPUSCULAR HGB CONC 35 g/dl (31.0-36.0); MEAN CORPUSCULAR VOLUME 91 fL (80-96); MONOCYTES # (AUTO) 1.7 K/uL (0.1-1.30); MONOCYTES % (AUTO) 17.5 % (2.0-12.0); NEUTROPHILS # (AUTO) 6.3 K/uL (1.8-8.9); NEUTROPHILS % (AUTO) 65.6 % (43.0-81.0); PLATELET COUNT (AUTO) 143 K/uL (150-450); RED BLOOD CELL COUNT(AUTO) 3.82 MIL/uL (4.5-6.0); RED CELL DISTRIBUTION WIDTH 17.2 % (11.5-15.0); WHITE BLOOD COUNT (AUTO) 9.5 K/uL (4.3-11.0)
[2024-02-27 16:13] LABS: ALBUMIN 3.3 g/dL (3.4-5.0); CALCIUM, SERUM 8.2 mg/dL (8.5-10.1); CREATININE 0.9 mg/dL (0.6-1.3); MAGNESIUM 1.7 mg/dL (1.8-2.4); PHOSPHORUS 3.4 mg/dL (2.5-4.9); POTASSIUM 3.9 mmol/L (3.5-5.1)
[2024-02-27 16:20] LABS: ANISOCYTOSIS 1+; BASOPHILS % (MANUAL) 0 % (0.0-2.0); EOSINOPHILS % (MANUAL) 0 % (0-4); LYMPHOCYTES % (MANUAL) 18 % (16-48); MONOCYTES % (MANUAL) 14 % (0-11.0); NEUTROPHILS % (MANUAL) 68 (42-76); PLATELET ESTIMATE DECREASED
[2024-02-27 20:00] VITALS: BP 135/75; TEMP 98.4; O2SAT 94
[2024-02-27 20:30] VITALS: BP 135/75; TEMP 98.4; O2SAT 97
[2024-02-28 04:18] LABS: BASOPHILS % (AUTO) 0.4 % (0.0-2.0); EOSINOPHILS % (AUTO) 0.2 % (0.0-6.0); HEMATOCRIT 32 % (39-51); LYMPHOCYTES # (AUTO) 1.4 K/uL (0.8-4.8); LYMPHOCYTES % (AUTO) 27.9 % (20.0-44.0); MEAN CORPUSCULAR HEMOGLOBIN 31 PG (26.0-33.0); MEAN CORPUSCULAR HGB CONC 34 g/dl (31.0-36.0); MEAN CORPUSCULAR VOLUME 90 fL (80-96); MONOCYTES % (AUTO) 20.7 % (2.0-12.0); NEUTROPHILS # (AUTO) 2.5 K/uL (1.8-8.9); NEUTROPHILS % (AUTO) 50.8 % (43.0-81.0); PLATELET COUNT (AUTO) 129 K/uL (150-450); RED BLOOD CELL COUNT(AUTO) 3.58 MIL/uL (4.5-6.0); RED CELL DISTRIBUTION WIDTH 17.1 % (11.5-15.0); WHITE BLOOD COUNT (AUTO) 4.9 K/uL (4.3-11.0)
[2024-02-28 04:36] LABS: CREATININE 0.8 mg/dL (0.6-1.3); POTASSIUM 3.7 mmol/L (3.5-5.1)
[2024-02-28 04:41] LABS: CALCIUM, SERUM 8.2 mg/dL (8.5-10.1)
[2024-02-28 05:13] LABS: ANISOCYTOSIS 1+; LYMPHOCYTES % (MANUAL) 18 % (16-48); MONOCYTES % (MANUAL) 12 % (0-11.0); NEUTROPHILS % (MANUAL) 70 (42-76); PLATELET ESTIMATE DECRE
[2024-02-28 11:08] LABS: INR 1.13 (0.91-1.10); PARTIAL THROMBOPLASTIN TIME 28.2 SEC (24.3-34.3); PROTHROMBIN TIME 11.9 SECS (9.2-11.1)
[2024-02-28] MEDS ORDERED: BUPIVACAINE 0.5 % PF 150 MG/30 ML VIAL ONE (11:19)
[2024-02-28] MEDS ORDERED: BACITRACIN ZINC OINT (15 GM) 15 GM TUBE TP ONE (11:19)
[2024-02-28] MEDS ORDERED: LIDOCAINE 1%-EPI 1:100,000 20 ML VIAL ONE (11:19)
[2024-02-28] MEDS ORDERED: ROCURONIUM BROMIDE 50 MG/5 ML ONE (12:10)
[2024-02-28] MEDS ORDERED: FENTANYL PF 250MCG/5ML AMPUL ONE (12:10)
[2024-02-28] MEDS ORDERED: FENTANYL PF 100MCG/2ML AMPUL ONE (13:39)
[2024-02-28] MEDS: CELECOXIB 100 MG CAPSULE PO SCH (15:07)
[2024-02-28] MEDS: ACETAMINOPHEN 325 MG TABLET PO SCH (15:08)
[2024-02-28] MEDS: GABAPENTIN 100 MG CAPSULE PO SCH (15:09)
[2024-02-28 16:57] VITALS: BP 126/94; TEMP 98; O2SAT 96
[2024-02-28 20:25] VITALS: BP 144/91; TEMP 98.2; O2SAT 98
[2024-02-28 21:55] VITALS: BP 129/78; TEMP 98.2; O2SAT 98
[2024-02-28 21:56] VITALS: BP 129/78; TEMP 98; O2SAT 98
[2024-02-29 08:00] VITALS: BP 135/105; TEMP 98.4; O2SAT 99
[2024-02-29] MEDS ORDERED: ACETAMINOPHEN 325 MG TABLET PO PRN (11:30)
[2024-02-29] MEDS: OXCARBAZEPINE 150 MG TABLET PO SCH (12:25)
[2024-02-29] MEDS: CARBIDOPA/LEVODOPA 25/100 MG 1 UDTAB PO SCH (12:25)
[2024-02-29] MEDS ORDERED: GABAPENTIN 100 MG CAPSULE PO SCH (13:00)
[2024-02-29] MEDS: GABAPENTIN 100 MG CAPSULE PO SCH (13:11)
[2024-02-29] MEDS ORDERED: CELE100C PO (15:35)
[2024-02-29] MEDS ORDERED: GABA100C PO (15:35)
[2024-02-29 16:00] VITALS: BP 138/100; TEMP 97.5; O2SAT 94
[2024-02-29 16:26] VITALS: TEMP 98
[2024-02-29] MEDS: QUETIAPINE FUMARATE 25 MG TABLET PO SCH (17:24)
[2024-02-29] MEDS ORDERED: Medication Not On Formulary EA (Melatonin 3 MG) PO SCH (22:00)
[2024-02-29] MEDS ORDERED: QUETIAPINE FUMARATE 100 MG TABLET PO SCH (22:00)
[2024-02-29] MEDS ORDERED: TRAZODONE 50 MG TABLET PO SCH (22:00)
[2024-02-29] MEDS ORDERED: ATORVASTATIN 10 MG TABLET PO SCH (22:00)
[2024-03-01] MEDS ORDERED: DOCUSATE SODIUM 100 MG CAPSULE PO SCH (09:00)
[2024-03-01] MEDS ORDERED: PANTOPRAZOLE 40 MG TABLET.DR PO SCH ×2 (09:00)
[2024-03-01] MEDS ORDERED: Medication Not On Formulary EA (Cranberry Extract (Cranberry) 450 MG) PO SCH (09:00)
[2024-03-01] MEDS ORDERED: TAMSULOSIN 0.4 MG CAP.SR.24H PO SCH (09:00)
== END 2024-02-29 18:09 | DRG 351 ==
LOC: ER 16:24 → MED 20:17
PROVIDERS: ADMIT Nurse Practitioner Family; ATTEND Nurse Practitioner Acute Care
PROC: 0YU50JZ Supplement Right Inguinal Region with Synthetic Substitute, Open Approach (ICD-10-PCS; principal; 2024-02-28)
DX: K40.30 Unilateral inguinal hernia, with obstruction, without gangrene, not specified as recurrent (principal); E44.1 Mild protein-calorie malnutrition; Z68.1 Body mass index [BMI] 19.9 or less, adult; E87.1 Hypo-osmolality and hyponatremia; E88.09 Other disorders of plasma-protein metabolism, not elsewhere classified; E86.1 Hypovolemia; D63.8 Anemia in other chronic diseases classified elsewhere; E11.40 Type 2 diabetes mellitus with diabetic neuropathy, unspecified; E78.5 Hyperlipidemia, unspecified; I10 Essential (primary) hypertension; L85.3 Xerosis cutis; Z90.49 Acquired absence of other specified parts of digestive tract; G20.A1 Parkinson's disease without dyskinesia, without mention of fluctuations; L90.5 Scar conditions and fibrosis of skin; F02.80 Dementia in other diseases classified elsewhere, unspecified severity, without behavioral disturbance, psychotic disturbance, mood disturbance, and anxiety; G89.29 Other chronic pain; E11.65 Type 2 diabetes mellitus with hyperglycemia; N40.0 Benign prostatic hyperplasia without lower urinary tract symptoms; Z82.49 Family history of ischemic heart disease and other diseases of the circulatory system; Z83.3 Family history of diabetes mellitus
CPT/HCPCS: 36415; 71045-TC; 80048-TC; 80076-TC; 82040-TC; 82962-TC; 83690-TC; 83735-TC; 84100-TC; 85025-TC; 85610-TC; 85730-TC; 86850-TC; 87081-TC; A4223; C1781; G0378; J0461; J0690; J1885; J2060; J2470; J2704; J3010; J3490; J7030

== ENCOUNTER 2024-03-30 15:15 | Emergency (ER) | payer MEDICARE, OTHER ==
[~2024-03-30] VITALS: Ht 167.6 cm; Wt 59.0 kg
[~2024-03-30 15:15] MED LIST changes: +CELE100C PO; +GABA100C PO
[2024-03-30] MEDS ORDERED: HYDROCODONE/APAP 5/325MG TABLET ONE (15:58)
[2024-03-30] MEDS: HYDROCODONE/APAP 5/325MG TABLET PO ONE (16:17)
[2024-03-30] MEDS ORDERED: ONDA-97 PO (16:32)
[2024-03-30] MEDS ORDERED: HALO2TAB2 PO (16:32)
[2024-03-30] MEDS ORDERED: HYDR-500 PO (16:32)
[2024-03-30] MEDS ORDERED: METF-440 PO (16:32)
[2024-03-30] MEDS ORDERED: DIVA125T32 PO (16:32)
[2024-03-30] MEDS ORDERED: SENN-261 PO (16:32)
[2024-03-30] MEDS ORDERED: BENZ0.5T43 PO (16:32)
[2024-03-30 20:03] VITALS: BP 124/68; TEMP 98.2; O2SAT 98
== END 2024-03-30 20:04 ==
LOC: ER 15:24
DX: S30.1XXA Contusion of abdominal wall, initial encounter (principal); S20.211A Contusion of right front wall of thorax, initial encounter; R07.89 Other chest pain; R60.9 Edema, unspecified; R91.8 Other nonspecific abnormal finding of lung field; E11.9 Type 2 diabetes mellitus without complications; E78.5 Hyperlipidemia, unspecified; F02.80 Dementia in other diseases classified elsewhere, unspecified severity, without behavioral disturbance, psychotic disturbance, mood disturbance, and anxiety; G20.A1 Parkinson's disease without dyskinesia, without mention of fluctuations; I10 Essential (primary) hypertension; M19.90 Unspecified osteoarthritis, unspecified site; N40.0 Benign prostatic hyperplasia without lower urinary tract symptoms; Z79.84 Long term (current) use of oral hypoglycemic drugs; Z79.899 Other long term (current) drug therapy; W18.30XA Fall on same level, unspecified, initial encounter; Y93.89 Activity, other specified; Y92.89 Other specified places as the place of occurrence of the external cause; Y99.8 Other external cause status
CPT/HCPCS: 71250-TC

== ENCOUNTER 2024-06-22 16:24 | Inpatient (IN) | payer MEDICARE, OTHER ==
[~2024-06-22] VITALS: Ht 167.6 cm; Wt 53.5 kg
[~2024-06-22 16:24] MED LIST changes: +BENZ0.5T43 PO; -CELE100C PO; -CRAN425C6 PO; +DIVA125T32 PO; -GABA100C PO; +HALO2TAB2 PO; +HYDR-500 PO; -MELA3TAB41 PO; +METF-440 PO; -NA P133E RC; +ONDA-97 PO; -OXCA300T15 PO; -POVI1MED TP; -QUET100T PO; -QUET25TA PO; +SENN-261 PO; -TRAZ-182 PO; -TRIA15CR2 TP
[2024-06-22 17:25] LABS: ALANINE AMINOTRANSFERASE < 6 U/L (12-78); ALBUMIN 3.1 g/dL (3.4-5.0); ALKALINE PHOSPHATASE 50 U/L (46-116); ASPARTATE AMINOTRANSFERASE 11 U/L (15-37); BILIRUBIN,DIRECT 0.2 mg/dL (0.0-0.2); BILIRUBIN,TOTAL 0.5 mg/dL (0.2-1.0); CALCIUM, SERUM 8.7 mg/dL (8.5-10.1); CARBON DIOXIDE 32 mmol/L (21-32); CHLORIDE 100 mmol/L (98-107); GLUCOSE 111 mg/dL (74-106); POTASSIUM 4.3 mmol/L (3.5-5.1); SODIUM SERUM 135 mmol/L (136-145); TOTAL PROTEIN, SERUM 7.8 g/dL (6.4-8.2); UREA NITROGEN, BLOOD 25 mg/dL (7-18)
[2024-06-22 17:28] LABS: INR 1.18 (0.91-1.10); PARTIAL THROMBOPLASTIN TIME 33.3 SEC (24.3-34.3); PROTHROMBIN TIME 12.4 SECS (9.2-11.1)
[2024-06-22 17:31] LABS: BASOPHILS % (AUTO) 0.6 % (0.0-2.0); EOSINOPHILS % (AUTO) 0.2 % (0.0-6.0); HEMATOCRIT 31 % (39-51); HEMOGLOBIN 10.7 g/dL (13.5-17.5); LYMPHOCYTES # (AUTO) 1.8 K/uL (0.8-4.8); LYMPHOCYTES % (AUTO) 33.5 % (20.0-44.0); MEAN CORPUSCULAR HEMOGLOBIN 31 PG (26.0-33.0); MEAN CORPUSCULAR HGB CONC 34 g/dl (31.0-36.0); MEAN CORPUSCULAR VOLUME 91 fL (80-96); MONOCYTES # (AUTO) 0.7 K/uL (0.1-1.30); MONOCYTES % (AUTO) 13.4 % (2.0-12.0); NEUTROPHILS # (AUTO) 2.8 K/uL (1.8-8.9); NEUTROPHILS % (AUTO) 52.3 % (43.0-81.0); PLATELET COUNT (AUTO) 61 K/uL (150-450); RED BLOOD CELL COUNT(AUTO) 3.42 MIL/uL (4.5-6.0); RED CELL DISTRIBUTION WIDTH 17.2 % (11.5-15.0); WHITE BLOOD COUNT (AUTO) 5.3 K/uL (4.3-11.0)
[2024-06-22 18:45] LABS: BAND % (MANUAL) 6 % (0.0-5.0); LYMPHOCYTES % (MANUAL) 35 % (16-48); METAMYELOCYTES % 1 % (0-0); MONOCYTES % (MANUAL) 6 % (0-11.0); NEUTROPHILS % (MANUAL) 52 (42-76)
[2024-06-22 18:46] LABS: ANISOCYTOSIS 1+; PLATELET ESTIMATE DECREASED
[2024-06-22] MEDS ORDERED: TRIH2TAB3 PO (19:29)
[2024-06-22] MEDS ORDERED: DEXTROSE 50%-WATER 50 ML DISP.SYRIN IV PRN (20:00)
[2024-06-22] MEDS ORDERED: MAG HYDROX/AL HYDROX/SIMETH 30 ML UDC PO PRN (20:00)
[2024-06-22] MEDS ORDERED: ACETAMINOPHEN 325 MG TABLET PO PRN (20:00)
[2024-06-22] MEDS ORDERED: SENNOSIDES 8.6 MG TABLET PO PRN (20:00)
[2024-06-22] MEDS ORDERED: ONDANSETRON HCL/PF 4 MG/2 ML VIAL IVP PRN (20:00)
[2024-06-22] MEDS ORDERED: MAGNESIUM HYDROXIDE 30 ML UDC PO PRN (20:00)
[2024-06-22 20:56] LABS: MAGNESIUM 1.9 mg/dL (1.8-2.4); PHOSPHORUS 3.4 mg/dL (2.5-4.9)
[2024-06-22] MEDS: ENOXAPARIN SODIUM 40 MG/0.4 ML DISP.SYRIN SQ SCH (21:00)
[2024-06-22] MEDS: GABAPENTIN 100 MG CAPSULE PO SCH (21:00)
[2024-06-22] MEDS: IV NS 0.9% 1,000 ML BAG IV ONE (21:02)
[2024-06-22] MEDS: ATORVASTATIN 10 MG TABLET PO SCH (22:00)
[2024-06-22] MEDS: IV NS 0.9% 1,000 ML IV SCH (23:36)
[2024-06-23] VITALS: BP 128/88; TEMP 97.2; O2SAT 94
[2024-06-23] MEDS ORDERED: CEFTRIAXONE 1GM BAG (ER ONLY) 50 ML IV ONE (00:09)
[2024-06-23] MEDS: CEFTRIAXONE 1 G in IV D5W 50 ML IV SCH (00:14)
[2024-06-23] MEDS: BLOOD SUGAR DIAGNOSTIC 1 EACH STRIP IN SCH (00:21)
[2024-06-23 04:00] VITALS: BP 129/73; TEMP 97.4; O2SAT 94
[2024-06-23] MEDS ORDERED: PANTOPRAZOLE 40 MG TABLET.DR PO SCH (07:30)
[2024-06-23 07:45] LABS: APPEARANCE,URINE CLEAR (CLEAR); BILIRUBIN,URINE NEGATIVE (NEGATIVE); BLOOD, URINE NEGATIVE Ery/uL (NEGATIVE); COLOR,URINE YELLOW (YELLOW); KETONES,URINE NEGATIVE (NEGATIVE); LEUKOCYTE ESTERASE ,URINE 2+ (NEGATIVE); NITRITE, URINE NEGATIVE (NEGATIVE); PH,URINE 6.5 (5.0-8.0); PROTEIN,URINE NEGATIVE (NEGATIVE); UGLUCOSE NEGATIVE (NEGATIVE)
[2024-06-23 07:46] LABS: BASOPHILS % (AUTO) 0.1 % (0.0-2.0); EOSINOPHILS % (AUTO) 0.3 % (0.0-6.0); HEMATOCRIT 31 % (39-51); LYMPHOCYTES # (AUTO) 1.3 K/uL (0.8-4.8); LYMPHOCYTES % (AUTO) 36.2 % (20.0-44.0); MEAN CORPUSCULAR HEMOGLOBIN 32 PG (26.0-33.0); MEAN CORPUSCULAR HGB CONC 35 g/dl (31.0-36.0); MEAN CORPUSCULAR VOLUME 90 fL (80-96); MONOCYTES # (AUTO) 0.6 K/uL (0.1-1.30); MONOCYTES % (AUTO) 16.2 % (2.0-12.0); NEUTROPHILS # (AUTO) 1.7 K/uL (1.8-8.9); NEUTROPHILS % (AUTO) 47.2 % (43.0-81.0); PLATELET COUNT (AUTO) 59 K/uL (150-450); RED BLOOD CELL COUNT(AUTO) 3.48 MIL/uL (4.5-6.0); RED CELL DISTRIBUTION WIDTH 17.2 % (11.5-15.0); WHITE BLOOD COUNT (AUTO) 3.7 K/uL (4.3-11.0)
[2024-06-23 07:51] LABS: CALCIUM, SERUM 8.4 mg/dL (8.5-10.1); CREATININE 0.8 mg/dL (0.6-1.3); MAGNESIUM 1.7 mg/dL (1.8-2.4); PHOSPHORUS 3.6 mg/dL (2.5-4.9); POTASSIUM 4.1 mmol/L (3.5-5.1)
[2024-06-23 08:08] VITALS: BP 120/88; TEMP 97.2; O2SAT 94
[2024-06-23] MEDS: TAMSULOSIN 0.4 MG CAP.SR.24H PO SCH (08:19)
[2024-06-23] MEDS: CARBIDOPA/LEVODOPA 25/100 MG 1 UDTAB PO SCH (08:19)
[2024-06-23] MEDS: PANTOPRAZOLE 40 MG VIAL IV SCH (08:19)
[2024-06-23] MEDS: DIVALPROEX SODIUM 125 MG TABLET.DR PO SCH (08:19)
[2024-06-23] MEDS: TRIHEXYPHENIDYL HCL 2 MG TABLET PO SCH (08:21)
[2024-06-23 09:57] LABS: ADD URINE CULTURE YES; BACTERIA,URINE 3+ /HPF (None Seen); RBC,URINE 0-2 /HPF (0-2); SQUAMOUS EPITHELIAL CELL,UR None Seen /HPF (None Seen)
[2024-06-23] MEDS: MAGNESIUM OXIDE 400 MG TABLET PO ONE (10:38)
[2024-06-23 12:24] VITALS: BP 136/90; TEMP 97.4; O2SAT 94
[2024-06-23 14:36] LABS: EOSINOPHILS % (MANUAL) 1 % (0-4); LYMPHOCYTES % (MANUAL) 42 % (16-48); MONOCYTES % (MANUAL) 12 % (0-11.0); NEUTROPHILS % (MANUAL) 45 (42-76); PLATELET ESTIMATE DECREASED
[2024-06-23 16:06] VITALS: BP 126/73; TEMP 97.4; O2SAT 94
[2024-06-23] MEDS: IV NS 0.9% 1,000 ML IV PRN (19:08)
[2024-06-23 20:00] VITALS: BP 139/73; TEMP 97.3; O2SAT 94
[2024-06-23] MEDS: INSULIN REGULAR, HUMAN 100 UNIT/ML 3 ML VIAL SQ PRN (21:52)
[2024-06-24] VITALS: BP 113/66; TEMP 97; O2SAT 94
[2024-06-24 04:00] VITALS: BP 127/77; TEMP 97.9; O2SAT 95
[2024-06-24 07:42] LABS: BASOPHILS % (AUTO) 1.1 % (0.0-2.0); EOSINOPHILS % (AUTO) 0.3 % (0.0-6.0); HEMATOCRIT 33 % (39-51); HEMOGLOBIN 11.4 g/dL (13.5-17.5); LYMPHOCYTES # (AUTO) 1.4 K/uL (0.8-4.8); LYMPHOCYTES % (AUTO) 43.2 % (20.0-44.0); MEAN CORPUSCULAR HEMOGLOBIN 31 PG (26.0-33.0); MEAN CORPUSCULAR HGB CONC 35 g/dl (31.0-36.0); MEAN CORPUSCULAR VOLUME 90 fL (80-96); MONOCYTES # (AUTO) 0.5 K/uL (0.1-1.30); MONOCYTES % (AUTO) 14.9 % (2.0-12.0); NEUTROPHILS # (AUTO) 1.3 K/uL (1.8-8.9); NEUTROPHILS % (AUTO) 40.5 % (43.0-81.0); PLATELET COUNT (AUTO) 53 K/uL (150-450); RED BLOOD CELL COUNT(AUTO) 3.63 MIL/uL (4.5-6.0); RED CELL DISTRIBUTION WIDTH 17.5 % (11.5-15.0); WHITE BLOOD COUNT (AUTO) 3.3 K/uL (4.3-11.0)
[2024-06-24 08:00] VITALS: BP 125/74; TEMP 97.9; O2SAT 95
[2024-06-24 08:07] LABS: CALCIUM, SERUM 7.9 mg/dL (8.5-10.1); CREATININE 0.8 mg/dL (0.6-1.3); MAGNESIUM 1.6 mg/dL (1.8-2.4); PHOSPHORUS 3.6 mg/dL (2.5-4.9); POTASSIUM 4.1 mmol/L (3.5-5.1)
[2024-06-24] MEDS: PANTOPRAZOLE 40 MG TABLET.DR PO SCH (08:35)
[2024-06-24] MEDS: MAGNESIUM OXIDE 400 MG TABLET PO ONE (11:09)
[2024-06-24 12:00] VITALS: BP 125/74; TEMP 97.9; O2SAT 95
[2024-06-24 12:16] LABS: ANISOCYTOSIS 1+; LYMPHOCYTES % (MANUAL) 44 % (16-48); MONOCYTES % (MANUAL) 8 % (0-11.0); NEUTROPHILS % (MANUAL) 48 (42-76); PLATELET ESTIMATE DECREASED
[2024-06-24 16:00] VITALS: BP 121/69; TEMP 97.7; O2SAT 95
[2024-06-24 20:00] VITALS: BP 159/89; TEMP 99.4; O2SAT 93
[2024-06-25 04:00] VITALS: BP 123/95; TEMP 98.4; O2SAT 96
[2024-06-25 07:26] LABS: BASOPHILS % (AUTO) 0.2 % (0.0-2.0); EOSINOPHILS % (AUTO) 0.1 % (0.0-6.0); HEMATOCRIT 34 % (39-51); HEMOGLOBIN 11.7 g/dL (13.5-17.5); LYMPHOCYTES # (AUTO) 1.3 K/uL (0.8-4.8); LYMPHOCYTES % (AUTO) 31.6 % (20.0-44.0); MEAN CORPUSCULAR HEMOGLOBIN 31 PG (26.0-33.0); MEAN CORPUSCULAR HGB CONC 35 g/dl (31.0-36.0); MEAN CORPUSCULAR VOLUME 90 fL (80-96); MONOCYTES # (AUTO) 0.9 K/uL (0.1-1.30); MONOCYTES % (AUTO) 20.6 % (2.0-12.0); NEUTROPHILS % (AUTO) 47.5 % (43.0-81.0); PLATELET COUNT (AUTO) 61 K/uL (150-450); RED BLOOD CELL COUNT(AUTO) 3.75 MIL/uL (4.5-6.0); RED CELL DISTRIBUTION WIDTH 17.2 % (11.5-15.0); WHITE BLOOD COUNT (AUTO) 4.2 K/uL (4.3-11.0)
[2024-06-25 08:00] VITALS: BP 129/90; TEMP 98.4; O2SAT 97
[2024-06-25 08:32] LABS: CALCIUM, SERUM 8.2 mg/dL (8.5-10.1); CARBON DIOXIDE 28 mmol/L (21-32); CHLORIDE 94 mmol/L (98-107); CREATININE 0.8 mg/dL (0.6-1.3); GLUCOSE 91 mg/dL (74-106); MAGNESIUM 1.6 mg/dL (1.8-2.4); PHOSPHORUS 2.8 mg/dL (2.5-4.9); POTASSIUM 3.8 mmol/L (3.5-5.1); SODIUM SERUM 127 mmol/L (136-145); UREA NITROGEN, BLOOD 12 mg/dL (7-18)
[2024-06-25] MEDS: MUPIROCIN OINT 2% 22 GM TUBE NS SCH (08:37)
[2024-06-25 09:28] LABS: LYMPHOCYTES % (MANUAL) 41 % (16-48); MONOCYTES % (MANUAL) 21 % (0-11.0); NEUTROPHILS % (MANUAL) 38 (42-76); PLATELET ESTIMATE DECREASED
[2024-06-25 09:29] LABS: ANISOCYTOSIS 1+
[2024-06-25] MEDS: MAGNESIUM OXIDE 400 MG TABLET PO ONE (10:30)
[2024-06-25] MEDS ORDERED: MERO1PIG IV (12:45)
[2024-06-25 16:10] VITALS: BP 109/76; TEMP 97.9; O2SAT 91
== END 2024-06-25 17:07 | DRG 177 ==
LOC: ER 16:42 → MEDSG1 20:50 → TELE1 21:28 → MEDSG1 06-24 11:57
PROVIDERS: ATTEND Student in an Organized Health Care Education/Training Program
DX: J15.69 Pneumonia due to other Gram-negative bacteria (principal); G93.41 Metabolic encephalopathy; E44.1 Mild protein-calorie malnutrition; D61.818 Other pancytopenia; N39.0 Urinary tract infection, site not specified; Z68.1 Body mass index [BMI] 19.9 or less, adult; E22.2 Syndrome of inappropriate secretion of antidiuretic hormone; Z16.12 Extended spectrum beta lactamase (ESBL) resistance; K21.9 Gastro-esophageal reflux disease without esophagitis; E78.5 Hyperlipidemia, unspecified; Z79.84 Long term (current) use of oral hypoglycemic drugs; I10 Essential (primary) hypertension; D69.6 Thrombocytopenia, unspecified; F20.9 Schizophrenia, unspecified; N40.1 Benign prostatic hyperplasia with lower urinary tract symptoms; E88.09 Other disorders of plasma-protein metabolism, not elsewhere classified; F02.80 Dementia in other diseases classified elsewhere, unspecified severity, without behavioral disturbance, psychotic disturbance, mood disturbance, and anxiety; G20.A1 Parkinson's disease without dyskinesia, without mention of fluctuations; E11.40 Type 2 diabetes mellitus with diabetic neuropathy, unspecified; Z82.49 Family history of ischemic heart disease and other diseases of the circulatory system; Z83.3 Family history of diabetes mellitus; D64.9 Anemia, unspecified; B96.20 Unspecified Escherichia coli [E. coli] as the cause of diseases classified elsewhere; R93.1 Abnormal findings on diagnostic imaging of heart and coronary circulation
CPT/HCPCS: 36415; 70450-TC; 71045-TC; 80048-TC; 80076-TC; 81001; 82962-TC; 83735-TC; 84100-TC; 84439-TC; 84443-TC; 84484-TC; 85025-TC; 85730-TC; 87040-TC; 87081-TC; 87086-TC; 87186-TC; 92526; 92611-TC; 93307-TC; 97110-TC; 97112-TC; 97116-TC; 97530-TC; A4217; A4223; G0378; J0696; J1650; J1815; J2470; J3490; J7030; J7060